=== PATIENT | female | born 1995 | race Caucasian/White ===

== ENCOUNTER 2025-02-16 08:55 | Outpatient (CLI) | payer OTHER, SELFPAY ==
--- NOTE | 2025-02-16 09:15 | CRLHL7_ITS ---
For Patients: As a result of the Century Cures Act, medical imaging exams and procedure reports are released immediately into your electronic medical record. You may view this report before your referring provider. If you have questions, please contact your health care provider. INDICATION: Dating and viability COMPARISON: None TECHNIQUE: Grayscale and color transvaginal ultrasound of the uterus and ovaries. FINDINGS: Last menstrual period: 12/20/2024 Estimated gestational age: 8 weeks 2 days The uterus is retroverted and retroflexed. There is a gestational sac at the uterine fundus that measures 20 x 24 x 39 millimeters for a mean sac diameter of 28 millimeters which corresponds to an estimated gestational age of 7 weeks and 6 days. There is a small normal yolk sac. An embryo is present with a crown-rump length of 16.8 millimeters which corresponds to an estimated gestational age of 8 weeks and 1 day. Embryonic cardiac activity is present at a rate of 178 beats per minute. There is a 2nd fluid filled presumed gestational sac that measures 13 x 19 x 24 millimeters for a mean sac diameter of 19 millimeters which corresponds to an estimated gestational age of 6 weeks and 6 days. No yolk sac or embryo. No perigestational hemorrhage. There is a very small myometrial fibroid that measures 0.5 cm. The right ovary measures 3.7 x 1.5 x 2.2 cm. The left ovary measures 3.2 x 2.1 x 2.1 cm. No ovarian cyst or mass. Normal color Doppler flow. No pelvic free fluid. IMPRESSION: There are 2 separate intrauterine gestational sacs, 1 with a normal yolk sac and a normal-appearing embryo with an estimated gestational age of 8 weeks 1 day based on crown-rump length. The other gestational sac does not have a yolk sac or embryo and is anembryonic. Dictated by Celina Forbes MD @ 02/16/2025 9:56:15 AM (Electronically Signed)
== END 2025-02-16 08:56 | disposition home or self-care (01) ==
LOC: US 08:56
PROVIDERS: Visit Provider Physician Assistant
DX: Z34.91 Encounter for supervision of normal pregnancy, unspecified, first trimester (principal); Z3A.08 8 weeks gestation of pregnancy
CPT/HCPCS: 76817; 83021; 86592; 86703; 86704; 86706; 86762; 86787; 86803; 86850; 86900; 86901; 87086; 87340; 87491; 87591

== ENCOUNTER 2025-05-14 12:50 | Outpatient (CLI) | payer OTHER, SELFPAY ==
--- NOTE | 2025-05-14 13:00 | CRLHL7_ITS ---
For Patients: As a result of the Century Cures Act, medical imaging exams and procedure reports are released immediately into your electronic medical record. You may view this report before your referring provider. If you have questions, please contact your health care provider. OBSTETRICAL ULTRASOUND ??? ANATOMY SURVEY INDICATION: anatomy survey. CLINICAL HISTORY: LMP: 12/20/2024 ROSELINE by LMP: 09/26/2025 Gestational age: 20 weeks 5 days TECHNIQUE: Real-time casillas-scale transabdominal imaging of the fetus was performed. PRIOR ULTRASOUND: 02/16/2025 FINDINGS: position: Vertex Cervix: Visualized Technique: Transabdominal Length of closed cervix: 4.4 cm Placenta position: Anterior, posterior, right wall. Technique: Transabdominal Placenta tip to internal os: 7.4 cm anterior, 9.6 cm posterior Umbilical cord: 3-vessel cord Placental insertion: Velamentous suggested Amniotic fluid: 3.9 cm SDP (greater than/equal to 2 to less than 8 cm) ANATOMY SURVEY: Observed Structures Cerebellum: Yes; 2.1 cm, 21 weeks 0 days Cisterna magna: Yes; 4.2 mm Nuchal fold: Yes; 5.3 mm Lateral ventricle: Yes; 8.5 mm CSP: Yes Midline falx: Yes Choroid plexus: Yes Spine: Yes Stomach: Yes Abdominal cord insert: Yes Urinary bladder: Yes Kidneys: Yes Diaphragm: Yes Nose/lips: Yes Orbital view: Yes Profile: Yes Upper extremities: Yes Lower extremities: Yes Hands: Yes Feet: Yes 4-chamber heart: Yes LVOT: Yes RVOT: Yes 3VV: Yes 3VTV: Unobserved BIOMETRY BPD: 5.0 cm, 21 weeks 0 days, 63.0% HC: 18.3 cm, 20 weeks 5 days, 38.2% AC: 15.9 cm, 21 weeks 0 days, 54.5% FL: 3.4 cm, 20 weeks 3 days, 33.7% FL/AC: 21.0% HC/AC ratio: 1.2 heart rate: 144 bpm age by this ultrasound: 20 weeks 5 days ROSELINE by this ultrasound: 09/26/2025 Estimated weight: 377.4 grams (0 pounds 13 ounces) Percentile by ROSELINE: 49.1% IMPRESSION: 1) There appear to be two placentas present, one at the posterior superior uterus and one at the anterior inferior uterus. Velamentous placental cord insertion is suggested. A level 2 maternal medicine consult is recommended for further evaluation. 2) Normal anatomic survey. 3) Concordance of clinical and sonographic dating. JARED ESCALANTE M.D. Diagnostic Radiologist [email or web address] Transcribed: 5:[address]/Dictated by: Jared Escalante MD @ 05/14/2025 2:52:00 PM (Electronically Signed)
== END 2025-05-14 12:51 | disposition home or self-care (01) ==
LOC: US 12:50
PROVIDERS: Visit Provider Obstetrics & Gynecology
DX: O43.192 Other malformation of placenta, second trimester (principal); Z3A.20 20 weeks gestation of pregnancy
CPT/HCPCS: 76805

== ENCOUNTER 2025-05-23 09:03 | Outpatient (CLI) | payer OTHER, SELFPAY | END 2025-05-23 09:04 | disposition home or self-care (01) | LOC: US 09:03 | PROVIDERS: Visit Provider Physician Assistant | DX: O43.192 Other malformation of placenta, second trimester (principal); Z3A.22 22 weeks gestation of pregnancy | CPT/HCPCS: 76811 ==

== ENCOUNTER 2025-05-29 06:17 | Emergency (ER) | payer OTHER, SELFPAY ==
[2025-05-29] VITALS (29 sets, daily range): BP systolic 108–128; BP diastolic 62–78; PULSE 70–95; RESP 20–23; TEMP 36.9; O2SAT 95–100; BMI 22.7
--- OUTSIDE RECORDS SUMMARY | 2025-05-29 06:20 | XMS_ITS ---
Author Organization [facility] [employer] [facility] (ClinicalSummary Clone) Address Unknown Care Team Providers Care Hide Mill Worker Name Role Phone Unavailable Primary Care Physician Unavailab le Results * [UNITY] CARRIER SCREEN Performed by: Clinc! Component Value Range Date Sickle Cell Disease/Beta-Thalassemia/Hemo globinopathies carrier screen NEGATIVE 03/31/2025 06:24 am [facility] Alpha-Thalassemia carrier screen NEGATIVE 03/31/2025 06:24 am [facility] Cystic Fibrosis carrier screen NEGATIVE 03/31/2025 06:24 am [facility] Spinal Muscular Atrophy carrier screen NEGATIVE 2 SMN1 copies, SNP not present 03/31/2025 06:24 am [facility] For detailed report, see PDF See PDF 03/31/2025 06:24 am [facility] 03/31/2025 06:2 4 am [facility] Social History Observation Value Start Date End Date
--- OUTSIDE RECORDS SUMMARY | 2025-05-29 06:20 | XMS_ITS ---
Author Organization [facility] [employer] [facility] (ClinicalSummary Clone) Address Unknown Care Team Providers Care Engineering Supplies Sales Name Role Phone Unavailable Primary Care Physician Unavailab le Results * [UNITY] ANEUPLOIDY NIPT Performed by: [place]. Component Value Range Date Fraction 11.7% 03/27/2025 02 :34 am [facility] Sex Chromosome Aneuploidy NOT DETECTED 02:34 am [facility] Monosomy X LOW RISK <1 in 10,000 2024 02:34 am [facility] Trisomy 13 LOW RISK <1 in 10,000 2024 02:34 am [facility] Trisomy 18 LOW RISK <1 in 10,000 2024 02:34 am [facility] Trisomy 21 LOW RISK <1 in 10,000 2024 02:34 am [facility] Sex MALE 03/27/2025 02:3 4 am [facility] Gestation JOHNSON 03/27/20 02:34 am [facility] For detailed report, see PDF See PDF 03/27/2025 02:34 am [facility] 03/27/2025 02:3 4 am [facility] Social History Observation Value Start Date End Date
--- OUTSIDE RECORDS SUMMARY | 2025-05-29 06:20 | XMS_ITS | Clinical Summary ---
Author Organization [facility] Address [address] [place] [id number] Care Team Providers Care Manager Loss Prevention Name Role Phone [facility] Primary Care Provider [phone] Allergies No known active allergies Medications fluticasone (50 mcg per actuation) nasal solution (FLONASE)Indicati ons:Allergic rhinitis due to pollen, unspecified seasonality Inhale 2 Sprays into both nostrils 2 times daily. 1 Bottle 1 9 Active Additional Information Patient not taking.Reported on 05/20/2025 cetirizine (ZYRTEC) 10 mg tablet Take 1 tablet by mouth once daily if needed for Other (Specify) (Allergy Symptoms). 0 9 Active norgestimate-ethi nyl estradioL (ORTHO TRI-CYCLEN) 0.18/0.215/0.25 mg-35 mcg (28) tabletIndications :Uses contraception TAKE 1 TABLET BY MOUTH EVERY DAY 84 tablet 0 Active Additional Information Patient not taking.Reported on 05/20/2025 FLUoxetine (PROZAC) 20 mg capsuleIndication s:Anxiety and depression TAKE 1 CAPSULE BY MOUTH EVERY DAY IN THE MORNING 90 capsule 0 Active vit/iron fum/folic ac ( 1 + 1 ORAL) Take by mouth once daily. Active Active Problems Problem Noted Date Diagnosed Date Anxiety and depression 11/26/2016 Estimated Date of Delivery Comme nts Yes 09/26/2025 Encounters Date Type Department Care Team Description 05/20/2025 11:14 AM FACTORY WORKER - 05/20/2025 2:55 PM FACTORY WORKER Emergency [facility] [address] [place] [address] Venessa Gerard MD Hematuria, unspecified type (Primary Dx); Calculus of kidney affecting in second trimester (HC) Discharge Disposition: Home Self Care 05/20/2025 10:09 AM FACTORY WORKER - 05/20/2025 10:32 AM FACTORY WORKER Hospital Encounter [facility] [address] [place] [address] Emmett Shipman MD Discharge Disposition: Home Self Care 05/20/2025 - 05/20/2025 10:06 AM FACTORY WORKER Emergency [facility] [address] [place] [address] 05/20/2025 Travel from Last 3 Months Immunizations Immunization Administration Dates Next Due DTaP 12/13/2000, 6,1995,1995, Hepatitis A (Peds) 12/11/2013,12/25/2009 Hepatitis B (Peds) 1995,1995, 995 Human Papilloma Virus Vaccine 02/15/2014, 010,12/25/2009 Inactivated Polio Vaccine 12/13/2000,1995, 1995,1995 Influenza,CCIIV4 PRESERV FREE 04/12/2018 MMR 12/13/2000,05/17/1996 Meningococcal Vaccine 02/15/2014,12/11/2013 Td (Age >=7 Years) 01/13/2007 Tdap 12/11/2013 Tuberculin (PPD) 02/06/2019 Typhoid (injectable) 12/11/2013 Varicella Vaccine 01/13/2007,05/17/1996 Zoster (Zostavax-ZVL, live) 12/14/2006 Social History Tobacco Use Types Packs/Day Years Used Date Smoking Tobacco: Never Passive Smoke Exposure: Never Smokeless Tobacco: Never Tobacco Cessation:Counseling Given: Not Answered Alcohol Use Standard Drinks/Week Comments Yes 0 (1 standard drink = 0.6 oz pur e alcohol) occasional PHQ-2 Answer Date Recorded PHQ-2 Score 0 09/06/2018 Alcohol Use Answer Date Recorded How often do you have a drink containing alcohol ? 0 05/20/2025 Average Number of Drinks Not on file 025 Frequency of Binge Drinking Not on file 05/05 Estimated Date of Delivery Comme nts Yes 09/26/2025 Sex and Gender Information Value Date Recorded Sex Assigned at Not on file Legal Sex Female 1:12 PM FACTORY WORKER Gender Identity Not on file Sexual Orientation Not on file Obstetrics History Para Term AB IAB SAB Ectopic Multiple Livin g Live Births 2 Date Outcome GA Total Labor Labor/2nd/3rd Weight Sex Type Anes PTL Elda A1 A5 Name Clin Current Summary Episode Dates Number of Fetuses Estimated Date of Delivery 05/20/2025 - Present (05/29/2025) 09/26/2025 (based on Alternate ROSELINE Entry) Dating Summary Based On ROSELINE GA Diff Alternate ROSELINE Entry 09/26/2025 Working Comment:Date entered prior t o episode creation Vitals Pregravid Weight Height TWG (As of 05/29/2025) Pregrav id BMI 1.676 m (5' 6) Date GA Fund Present FHR Mvmt BP Weight Edema Alb Glu Ket Dil/ Eff/Sta 5 21w4d Inpatient data not displayed here. See encounter summary. 21w4d Inpatient data not displayed here. See encounter summary. Notes Progress Notes - Hospital En counter - 05/20/2025 - GA:21w4d 05/20/2025 - 21w4d - Juanita David, RN 21w4d Pt arrived on unit at 1009 from urgent care with concerns for kidney stones. Pt reprots kidney stones in her last and is now noticing blood in her urine and pain with urination. Pt denies flank pain but has some lower abdominal pain. Pt denies contractions, leaking of fluid, and reports good movement. UA and culture were already obtained in urgent care. Pt is vitally stable and dop tones were reassuring 140-150's with increases. Dr. Shepherd was contacted at 1021 and he ordered pt to be transfered back to the ED for further work up of potential kidney stones. Pt agreeable to plan and pt brought back to ED waiting from per ED charge nurse request at [phone]. ORY WORKER Last Filed Vital Signs Vital Sign Reading Time Taken Comments Blood Pressure 115/70 05/20/2025 10:52 AM FACTORY WORKER Pulse 92 05/20/2025 10:52 AM FACTORY WORKER Temperature 36.7 C (98.1 F) 05/20/2025 10:52 AM FACTORY WORKER Respiratory Rate 16 05/20/2025 10:52 AM FACTORY WORKER Oxygen Saturation 99% 05/20/2025 10:52 AM FACTORY WORKER Inhaled Oxygen Concentration - - Weight 64.9 kg (143 lb) 05/20/2025 10:52 AM FACTORY WORKER Height 167.6 cm (5' 6) 05/20/2025 10:52 AM FACTORY WORKER Body Mass Index 23.08 05/20/2025 10:52 AM FACTORY WORKER Plan of Treatment Health Maintenance Due Date Last Done Comments HIV for age 15-65 2010 Hepatitis C screening for age 18-79 2013 Pap test for age 21-65 12/03/2018 6 (Completed outside of [facility]) BMI (ht and wt on same day) for age 18+ 12/13/2019 12/12/2018, 01/06/2018, 01/19/2017, Additional history exists Depression screening for age 12+ 12/13/2019 12/12/2018, 01/06/2018, 01/19/2017, Additional history exists Tetanus booster 12/12/2023 12/11/2013, 01/13/2007 Influenza Vaccine (#1) 2025 04/12/2018 RSV vaccine for adults or (1 - Risk 1-dose series) 08/01/2025 Hepatitis B series for 19+ Completed 11/09, 1995, 1995 HPV series for age 9-45 Completed 02/16/20 14, 02/24/2010, 12/25/2009 Pneumococcal series for age 6-49 Aged Out No longer eligible based on patient's age to complete this topic Procedures Procedure Name Priority Date/Time Associated Diagnosis Comments US RENAL AND BLADDER COMPLETE STAT 05/20/2025 2:30 PM FACTORY WORKER CBC WITH AUTO DIFFERENTIAL STAT 05/20/2025 11:37 AM FACTORY WORKER COMP METABOLIC PANEL STAT 05/20/2025 11:37 AM FACTORY WORKER CBC WITH AUTO DIFFERENTIAL STAT 05/20/2025 11:37 AM FACTORY WORKER URINALYSIS MICROSCOPIC STAT 05/20/2025 9:40 AM FACTORY WORKER Frequency of urination URINE CULTURE STAT 05/20/2025 9:40 AM FACTORY WORKER Frequency of urination UA W/ SEDIMENT EXAM REFLEXED PER CRITERIA STAT 05/20/2025 9:40 AM FACTORY WORKER Frequency of urination from Last 3 Months Results * US RENAL AND BLADDER COMPLETE (05/20/2025 2:30 PM FACTORY WORKER) Anatomical Region Laterality Modality Abdomen, AORTA, KIDNEYS Ultrasou nd 05/20/2025 2:48 PM FACTORY WORKER Impressions 05/20/2025 2:48 PM FACTORY WORKER Possible mild right hydronephrosis versus physiologic prominence of the renal collecting system in The bladder and left kidney are unremarkable Dictated by Abby Coelho MD @ 05/20/2025 2:48:28 PM (Electronically Signed) Narrative 05/20/2025 2:48 PM FACTORY WORKER For Patients: As a result of the Cures Act, medical imaging exams and procedure reports are released immediately into your electronic medical record. You may view this report before your referring provider. If you have questions, please contact your health care provider. INDICATION: Hematuria, TECHNIQUE: Ultrasound renal and bladder complete. Jack-scale and color Doppler sonographic images were acquired of the kidneys and urinary bladder. COMPARISON: None. FINDINGS: Right kidney: 11.2 x 6.2 x 4.8 cm. Normal echotexture and cortex. No suspicious masses or stones. Prominence of the right renal hilum that persists after voiding, indeterminate for trace hydronephrosis versus physiologic state of . Left kidney: 12 x 7 x 6.9 cm. Normal echotexture and cortex. No suspicious masses, stones, or hydronephrosis. Bladder: Normal in caliber and appearance. Postvoid residual volume of 2.9 mL. Color Doppler images demonstrate bilateral ureteral jets. Procedure Note Abby Coelho MD - 05/20/2025 For Patients: As a result of the Cures Act, medical imagingexams and procedure reports are released immediately into your electronicmedical record. You may view this report before your referring provider.If you have questions, please contact your health care provider. INDICATION: Hematuria, TECHNIQUE: Ultrasound renal and bladder complete. Jack-scale and color Dopplersonographic images were acquired of the kidneys and urinary bladder. COMPARISON: None. FINDINGS: Right kidney: 11.2 x 6.2 x 4.8 cm. Normal echotexture and cortex. Nosuspicious masses or stones. Prominence of the right renal hilum thatpersists after voiding, indeterminate for trace hydronephrosis versusphysiologic state of . Left kidney: 12 x 7 x 6.9 cm. Normal echotexture and cortex. Nosuspicious masses, stones, or hydronephrosis. Bladder: Normal in caliber and appearance. Postvoid residual volume of 2.9mL. Color Doppler images demonstrate bilateral ureteral jets. IMPRESSION: Possible mild right hydronephrosis versus physiologic prominence of therenal collecting system in The bladder and left kidney are unremarkable Dictated by Abby Coelho MD @ 05/20/2025 2:48:28 PM (Electronically Signed) Venessa Gerard MD Final Result * (ABNORMAL) CBC WITH AUTO DIFFERENTIAL (05/20/2025 11:37 AM FACTORY WORKER) WHITE BLOOD COUNT 8.5 4.5 - 11.0 thou/cu mm 05/20/2025 11:44 AM FACTORY WORKER [facility] RED BLOOD COUNT 3.73(L) 4.00 - 5.20 mil/cu mm 05/20/2025 11:44 AM FACTORY WORKER [facility] HEMOGLOBIN 11.7(L) 12.0 - 16.0 g/dL 05/20/2025 11:44 AM [facility] HEMATOCRIT 34.5 33.0 - 51.0 % 05/20/2025 11:44 AM [facility] MCV 93 80 - 100 fL 05/20/2025 11:44 AM [facility] MCH 31.4 26.0 - 34.0 pg 05/20/2025 11:44 AM [facility] MCHC 33.9 32.0 - 36.0 g/dL 05/20/2025 11:44 AM [facility] RDW 12.8 11.5 - 15.5 % 05/20/2025 11:44 AM [facility] PLATELET COUNT 156 140 - 440 thou/cu mm 05/20/2025 11:44 AM [facility] MPV 10.8 6.5 - 11.0 fL 05/20/2025 11:44 AM [facility] % NEUT 74.2 % 05/20/2025 11:44 AM [facility] % LYMPH 19.1 % 05/20/2025 11:44 AM [facility] % MONO 5.6 % 05/20/2025 11:44 AM [facility] % EOS 0.9 % 05/20/2025 11:44 AM [facility] % BASO 0.2 % 05/20/2025 11:44 AM [facility] ABSOLUTE NEUTROPHILS 6.3 1.7 - 7.0 thou/cu mm 05/20/2025 11:44 AM [facility] ABSOLUTE LYMPHOCYTES 1.6 0.9 - 2.9 thou/cu mm 05/20/2025 11:44 AM [facility] ABSOLUTE MONOCYTES 0.5 <0.9 thou/cu mm 05/20/2025 11:44 AM [facility] ABSOLUTE EOSINOPHILS 0.1 <0.5 thou/cu mm 05/20/2025 11:44 AM [facility] ABSOLUTE BASOPHILS 0.0 <0.3 thou/cu mm 05/20/2025 11:44 AM [facility] Blood BLOOD SPECIMEN / Unknown Venipuncture / Unknown 05/20/2025 11:37 AM [facility] 05/20/2025 11:40 AM FACTORY WORKER us Venessa Gerard MD HEMATOLOGY Final Result [facility] [address] [place] [address] * (ABNORMAL) COMP METABOLIC PANEL (05/20/2025 11:37 AM FACTORY WORKER) SODIUM 136 136 - 145 mmol/L 05/20/2025 12:02 PM [facility] POTASSIUM 4.1 3.5 - 5.1 mmol/L 05/20/2025 12:02 PM [facility] CHLORIDE 104 98 - 107 mmol/L 05/20/2025 12:02 PM [facility] CO2,TOTAL 22 22 - 29 mmol/L 05/20/2025 12:02 PM [facility] ANION GAP 10 5 - 18 05/20/2025 12:02 PM [facility] GLUCOSE 80 70 - 99 mg/dL 05/20/2025 12:02 PM [facility] CALCIUM 8.5(L) 8.8 - 10.4 mg/dL 05/20/2025 12:02 PM [facility] Comment: Reference ranges for this test were updated on 05/09/2024 to reflect our healthy population more accurately. Reference range changes are not retroactively applied to results, but previous results using the same methodology can be interpreted in the context of the new reference range. BUN 11 6 - 20 mg/dL 05/20/2025 12:02 PM [facility] CREATININE 0.55 0.50 - 0.90 mg/dL 05/20/2025 12:02 PM [facility] BUN/CREAT RATIO 20 10 - 20 12:02 PM [facility] eGFR >90 >90 mL/min/1. 73m2 05/20/2025 12:02 PM [facility] Comment:As of 2021, eG FR is calculated by the CKD-EPI creatinine equation without race adjustment. eGFR can be influenced by muscle mass, exercise, and diet. The reported eGFR is an estimation only and is only applicable if the renal function is stable. ALBUMIN 3.7(L) 4.0 - 4.9 g/dL 05/20/2025 12:02 PM [facility] PROTEIN,TOTAL 6.0 6.0 - 8.0 g/dL 05/20/2025 12:02 PM [facility] BILIRUBIN,TOTAL 1.1 0.0 - 1.2 mg/dL 05/20/2025 12:02 PM [facility] ALK PHOSPHATASE 36 35 - 104 IU/L 05/20/2025 12:02 PM [facility] ALT (SGPT) 9(L) 10 - 35 IU/L 05/20/2025 12:02 PM [facility] AST (SGOT) 15 10 - 35 IU/L 05/20/2025 12:02 PM [facility] Blood BLOOD SPECIMEN / Unknown Venipuncture / Unknown 05/20/2025 11:37 AM FACTORY WORKER 05/20/2025 11:40 AM [facility] us Venessa Gerard MD CHEMISTRY Final Result [facility] [address] [place] [id number] * (ABNORMAL) URINALYSIS MICROSCOPIC (05/20/2025 9:40 AM FACTORY WORKER) RBC >100(A) 0-2, None Seen /HPF 05/20/2025 10:23 AM [facility] WBC 0-2 0-2, 3-5, None Seen /HPF 05/20/2025 10:23 AM [facility] BACTERIA Many(A) None Seen, Rare, Few Bacteria/ HPF 05/20/2025 10:23 AM [facility] EPITHELIAL CELLS Few None Seen, Few Epi/HPF 05/20/2025 10:23 AM [facility] AMORPHOUS Present(A) (none) 05/20/2025 10:23 AM [facility] Urine URINE SPECIMEN / Unknown Non-Blood / Unknown 05/20/2025 9:40 AM FACTORY WORKER 05/20/2025 9:58 AM FACTORY WORKER us Jimmie Alberto Le PA URINE Final Result [facility] [address] [place] [address] * URINE CULTURE (05/20/2025 9:40 AM FACTORY WORKER) CULTURE 10-50,000 CFU/mL of multiple organisms, probable contaminants 05/22/2025 8:13 AM FACTORY WORKER [facility] Urine URINE SPECIMEN / Unknown Non-Blood / Unknown 05/20/2025 9:40 AM FACTORY WORKER 05/20/2025 9:58 AM FACTORY WORKER us Jimmie Alberto Le KELLI MICROBIOLOGY Final Result Performing Organization Address City/[facility]/ZIP Co de Phone Number [facility] [address] [address], [place] * (ABNORMAL) UA W/ SEDIMENT EXAM REFLEXED PER CRITERIA (05/20/2025 9:40 AM FACTORY WORKER) COLOR Yellow Yellow Color 05/20/2025 10:14 AM [facility] CLARITY Cloudy(A) Clear Clarity 05/20/2025 10:14 AM [facility] SPECIFIC GRAVITY,URINE 1.020 1.010, 1.015, 1.020, 1.025 05/20/2025 10:14 AM [facility] PH,URINE 7.5 6.0, 7.0, 8.0, 5.5, 6.5, 7.5, 8.5 05/20/2025 10:14 AM [facility] UROBILINOGEN, QUALITATIVE Normal Normal EU/dl 05/20/2025 10:14 AM [facility] PROTEIN, URINE Trace(A) Negative mg/dL 05/20/2025 10:14 AM [facility] GLUCOSE, URINE Negative Negative mg/dL 05/20/2025 10:14 AM [facility] KETONES,URINE Negative Negative mg/dL 05/20/2025 10:14 AM FACTORY WORKER [facility] BILIRUBIN,URI NE Negative Negative 05/20/2025 10:14 AM [facility] OCCULT BLOOD,URINE Large(A) Negative 05/20/2025 10:14 AM [facility] NITRITE Negative Negative 05/20/2025 10:14 AM FACTORY WORKER [facility] LEUKOCYTE ESTERASE Negative Negative 05/20/2025 10:14 AM [facility] Urine URINE SPECIMEN / Unknown Non-Blood / Unknown 05/20/2025 9:40 AM FACTORY WORKER 05/20/2025 9:58 AM FACTORY WORKER us Jimmie Remy Hughes URINE Final Result [facility] [address] [place] [address] from Last 3 Months Insurance [facility] Care Teams Manager Loss Prevention Relationship Specialty Start Date End Date [facility] [address] [place], [place] [id number] PCP - General 05/20/25
--- NOTE | 2025-05-29 06:56 | ED_ITS ---
HPI - General Adult General Date Seen: 05/29/25 Chief complaint: Flank Pain Stated complaint: RT flank pain wrap Time Seen by Provider: 05/29/25 06:56 History of Present Illness HPI narrative: 30-year-old female who is currently 23 weeks . She is following with Tere Greenfield for care. Most recent visit was 05/14/2025. According to those records she did have 2 gestational sacs noted on ultrasound in February but apparently had vanishing twin on follow-up imaging. She was seen in the [facility] on 05/20/2020 5-9 days ago. She had presented with hematuria and suprapubic discomfort. Laboratory workup showed a white count of 8.5, hemoglobin 11.7, platelet count 156. BUN was 11, creatinine 0.55, glucose 80. Normal LFTs. Urinalysis showed hematuria (>100RBC)but no definite infection. Follow-up urine culture grew multiple species, likely contaminant. Because of hematuria, renal ultrasounds obtained on and showed IMPRESSION: Possible mild right hydronephrosis versus physiologic prominence of the renal c ollecting system in ? The bladder and left kidney are unremarkable She says she had been doing well after being seen in the [facility] ER 9 days ago. She had some mild right lower quadrant pain a few days ago that came and went. Last night at about 10:00 p.m. she started having pain in her right flank, radiating down into her right lower quadrant, reminiscent of her kidney stone again and blood in her urine again. She was also nauseous and vomited once. No fever or chills. She is not having any vaginal bleeding or fluid leakage. She took Tylenol at 10:00 p.m. and 2:00 a.m. without any improvement Related Data Home Medications ?Medication ?Instructions ?Recorded ?Confirmed [id number] 3 fatty no.1 27 cap PO DAILY 5 05/14/25 mg-1 mg-300 mg capsule Previous Rx's ?Medication ?Instructions ?Recorded fluoxetine 20 mg capsule 20 mg PO QDAY #30 caps 04/13 Allergies Allergy/AdvReac Type Severity Reaction Status Date / Time No Known Drug Allergies Allergy Verified 05/29/25 06:32 PFSH [facility] Surgical History (Updated 02/16/25 @ 13:08 by Tere Stuart PA-C) History of facial surgery ?Z98.890 - Other specified postprocedural states (ICD-10) Social History (Updated 02/16/25 @ 13:09 by Tere Stuart PA-C) Narrative: Occupation: Occupational therapist. Marital status: . Congregational/cultural needs: no. Chemical or radiation exposure: no. Pre- tobacco use: no. Pre- alcohol use: no. Current tobacco use: no. Current alcohol use: no. Recreational drug use: no. Dietary restrictions: no. Blood transfusion acceptable in an emergency: yes. PSYCHOSOCIAL HISTORY: History of depression or currently depressed: Yes, doing well on fluoxetine. Current or past physical, emotional, or sexual mistreatment: Denies. Problems that will make it hard to make it to appointments: Denies. What is your current living situation?: I presently have a place to live Problems where you live: no known problems In the past 12 months, utilities in danger of being shut off: no In past 12 months, lack of transportation kept you from medical appts, meetings, work, or getting things needed for daily living: no In the past 12 mos, have been you worried that your food would run out before you had money to buy more?: never true In the past 12 mos, the food you bought just didn't last and you didn't have money to buy more?: never true How often does anyone, including family, friends and others, physically hurt you : never How often does anyone, including family, friends and others, insult or talk down to you: never How often does anyone, including family, friends and others, threaten you with harm: never How often does anyone, including family, friends and others, scream or curse at you: never Exam Narrative: Exam Narrative: Constitutional: Appears well-developed and well-nourished. Alert. Uncomfortable appearing, but Conversant. Overall, she is Non toxic. attentively at her side. HENT: Head: Atraumatic. Nose: Nose normal. Mouth/Throat: Oral mucosa is clear and moist. no trismus. Pharynx normal. Tonsils symmetric. No tonsillar enlargement, erythema, or exudate. Eyes: Conjunctivae normal. EOM normal. Pupils equal, round, and reactive to light. No scleral icterus. Neck: Normal range of motion. Neck supple. No tracheal deviation present. Cardiovascular: Normal rate, regular rhythm. No gallop. No friction rub. No murmur heard. Symmetric radial artery pulses Pulmonary/Chest: Effort normal. No stridor. No respiratory distress. No wheezes. No rales. No rhonchi . No tenderness. Abdominal: Soft. Bowel sounds normal. No distension. Mild right CVA and right lower quadrant tenderness. No rebound. No guarding. Gravid nontender uterus with fundus superior to the umbilicus consistent with dates. Musculoskeletal: RUE: Normal range of motion. No tenderness. No deformity LUE: Normal range of motion. No tenderness. No deformity RLE: Normal range of motion. No edema. No tenderness. No deformity LLE: Normal range of motion. No edema. No tenderness. No deformity Neurological: Alert and oriented to person, place, and time. Normal strength. CN II-VII intact. No sensory deficit. GCS eye subscore is 4. GCS verbal subscore is 5. GCS motor subscore is 6. Normal coordination Skin: Skin is warm and dry. No rash noted. No pallor. Normal capillary refill. Psychiatric: Normal mood. She looks very uncomfortable. Const: Vital Signs, click to edit/add: Vital Signs - 24 hr 05/29/25 06:21 Temperature 98.4 F Pulse Rate [Right Pulse Oximeter] 95 Respiratory Rate 23 Blood Pressure [Ri ght Upper Arm] 124/71 Pulse Oximetry 96 Oxygen Delivery Me thod Room Air Course Vital Signs Vital signs: Initial Vital Signs Temperature 98.4 F 05/29/25 06:21 Temperature Source Temporal Artery Scan 05/29/25 06:21 Pulse Rate 95 05/29/25 06:21 Pulse Rhythm Regular 05/29/25 06:21 Respiratory Rate 23 05/29/25 06:21 Blood Pressure 124/71 05/29/25 06:21 Blood Pressure Mean 88 05/29/25 06:21 Blood Pressure Position Sitting 05/29/25 06:21 Pulse Oximetry 96 05/29/25 06:21 Oxygen Delivery Method Room Air 05/29/25 06:21 Vital Signs Temperature 98.4 F 05/29/25 06:21 Pulse Rate 95 05/29/25 06:21 Respiratory Rate 23 05/29/25 06:21 Blood Pressure 124/71 05/29/25 06:21 Pulse Oximetry 96 05/29/25 06:21 Oxygen Delivery Method Room Air 05/29/25 06:21 Temperature 98.4 F 05/29/25 06:21 Pulse Rate 95 05/29/25 06:21 Respiratory Rate 23 05/29/25 06:21 Blood Pressure 124/71 05/29/25 06:21 Pulse Oximetry 96 05/29/25 06:21 Oxygen Delivery Method Room Air 05/29/25 06:21 Medications Administered Medications: Generic Name Dose Route Start Last Admin Trade Name Freq PRN Reason Stop Dose Admin Hydromorphone HCl 0.5 mg 05/29/25 07:04 05/29/25 07:33 Hydromorphone 0.5 Mg/0.5 Ml Inj IVP 0.5 mg Q1H PRN Administration Pain Discontinued Medications Generic Name Dose Route Start Last Admin Trade Name Freq PRN Reason Stop Dose Admin Sodium Chloride 1,000 mls @ 1,000 mls/hr 05/29/25 07:15 05/29/25 07:29 0.9 % Sodium Chloride 1000 Ml IV 05/29/25 08:14 1,000 mls/hr .Q1H ROBERT Administration Ondansetron HCl 4 mg 05/29/25 07:04 05/29/25 07:33 Ondansetron 2 Mg/Ml Inj IVP 05/29/25 07:05 4 mg ONCE ONE Administration Medical Decision Making MDM Narrative Medical decision making narrative: Pleasant 30-year-old female who is , currently 23 weeks [facility] severe right flank pain, nausea and vomiting. She has a history of kidney stones complicating her 1st and is suspected to have a kidney stone beginning 9 days ago on 05/20. She already has had ultrasound done at [facility] that confirm right-sided hydronephrosis. She has not had CT imaging to confirm the location and size of this stone, however. Given presentation weighing all is suspicious for kidney stone, I do not think we need to do repeat ultrasound double-checked for hydronephrosis. For now will hold off on CT imaging give will restore radiation to the patient and her fetus, pending consultation with Urology. She had been pretty comfortable at home for the past 8 days but overnight had a dramatic return in pain and nausea. She is not having any fever. She is quite uncomfortable but is hemodynamically stable. Workup here in the ER this morning shows normal white count but she does have a neutrophil predominance. She also has a drop in her platelet count compared to February from 200 down to 150. Normal kidney function. Normal LFTs. Urinalysis confirms hematuria but also shows new pyuria today that was not present on 05/20. There is also moderate bacteria. Negative nitrite. With concern for possible evolving urinary infection in the setting of a stone we started the patient on Rocephin. She did have a bedside evaluation by the labor and delivery nurses. So far no clear signs or symptoms of labor, miscarriage. She has received 2 doses of Dilaudid here in the ER but remains uncomfortable. It is clear she will need admission for pain control. Discussed with our on- call early childhood associate, Dr. Ann. She agrees with admission for pain control but recommends transfer out of [place] to another hospital with Urology since she likely will need a stent in this clinical scenario. I discussed this recommendation with the patient and her and they give agreement. They would agree with transfer to [facility] (she believes line is in network since she was at the [facility] (and [facility] facility) 9 days ago). We have placed transfer request through the line access center. Discussed with my partner, Dr. Nash at 8:30 a.m.. He will follow up with the receiving facility to arrange transfer. Lab Data Labs: Lab Results 05/29/25 05/29/25 Range/Units 07:15 07:35 WBC 9.53 (4.50-11.00) K/uL RBC 3.93 L (4.00-5.20) m/uL Hgb 12.5 (12.0-16.0) gm/dL Hct 36.8 (33.0-51.0) % MCV 94 (80-100) fL MCH 32 (26-34) pg MCHC 34 (32-36) gm/dL RDW Coeff of Oneil 12.6 (11.5-15.5) % Plt Count 149 (140-440) K/uL Neut % (Auto) 92.4 H (42.0-72.0) % Lymph % (Auto) 6.3 L (20-44) % [place] % (Auto) 0.9 (0.0-11.0) % Eos % (Auto) 0.0 (0.0-7.0) % Baso % (Auto) 0.1 (0.0-3.0) % Neut # (Auto) 8.80 H (1.7-7.0) K/uL Lymph # (Auto) 0.60 L (0.90-2.90) K/uL [place] # (Auto) 0.10 (0.00-0.90) K/UL Eos # (Auto) 0.00 (0.00-0.50) K/uL Baso # (Auto) 0.01 (0.00-0.30) K/uL Abs Immat Gran (auto) 0.03 (0.00-0.30) K/uL Imm/Tot Granulo (auto) 0.3 % Sodium 134 L (135-149) mmol/L Potassium 4.2 (3.6-5.1) mmol/L Chloride 101 (96-114) mmol/L Carbon Dioxide 22 (20-32) mmol/L Anion Gap 11 (7-15) mEq/L BUN 11 (5-24) mg/dL Creatinine 0.6 (0.5-1.5) mg/dL Estimated Creat Clear 133.32 Estimated GFR 124 ml/min Glucose 134 H (60-115) mg/dL Calcium 8.5 (8.4-10.6) mg/dL Total Bilirubin 1.1 (0.1-1.5) mg/dL AST 18 (12-35) U/L ALT 14 (4-35) U/L Alkaline Phosphatase 49 (40-150) U/L Total Protein 6.7 (6.0-8.3) g/dL Albumin 3.8 (3.3-5.0) g/dL Lipase 36 (23-300) U/L Urine Color [place] A (Yellow) Urine Appearance Cloudy A (Clear) Urine pH 7.5 (5.0-8.5) Ur Specific [place] 1.020 (1.000-1.030) Urine Protein 2+ A (Negative) Urine Glucose (UA) Negative (Negative) Urine Ketones 1+ A (Negative) Urine Blood 3+ A (Negative) Urine Nitrite Negative (Negative) Urine Bilirubin Negative (Negative) Urine Urobilinogen 0.2 (0.2-1.0) Ur Leukocyte Esterase Negative (Negative) Urine RBC >100 A (0-2) Urine WBC 25-50 A (0-5) Ur Squamous Epith Cells Few (None-Few) Amorphous Sediment Many A (None) Urine Bacteria Moderate A (None) Discharge Plan Discharge Prescriptions: No Action [id number] 3 fatty no.1 27-1-300 mg capsule PO DAILY fluoxetine 20 mg capsule 20 mg PO QDAY Qty: 30 12RF Follow Up/Referrals: Provider,Not a Local [Primary Care Provider, Family Practice]
[2025-05-29 07:19] LABS: Appearance Urine Cloudy (Clear)
[2025-05-29] MEDS: ONDANSETRON 2 MG/ML inj 4 MG IVP (07:33)
[2025-05-29 07:38] LABS: Hematocrit* 36.8 % (33.0-51.0); Hemoglobin* 12.5 gm/dL (12.0-16.0); Immature Granulocytes Abs Auto 0.03 K/uL (0.00-0.30); Immature Granulocytes Pct Auto 0.3 %; Lymphocytes Absolute Auto 0.60 K/uL (0.90-2.90); Mean Corpuscular HGB Conc 34 gm/dL (32-36); Mean Corpuscular Hemoglobin 32 pg (26-34); Mean Corpuscular Volume 94 fL (80-100); RDW Coefficient of Variation % 12.6 % (11.5-15.5); Red Blood Count* 3.93 m/uL (4.00-5.20); White Blood Count* 9.53 K/uL (4.50-11.00)
[2025-05-29 08:05] LABS: Slide Review Reflex No
[2025-05-29 08:06] LABS: Albumin* 3.8 g/dL (3.3-5.0); Chloride* 101 mmol/L (96-114)
[2025-05-29 08:07] LABS: Potassium* 4.2 mmol/L (3.6-5.1); Sodium* 134 mmol/L (135-149)
[2025-05-29 08:09] LABS: Alanine Aminotransferase* 14 U/L (4-35); Alkaline Phosphatase* 49 U/L (40-150); Anion Gap 11 mEq/L (7-15); Aspartate Amino Transferase* 18 U/L (12-35); Bilirubin Total* 1.1 mg/dL (0.1-1.5); Blood Urea Nitrogen* 11 mg/dL (5-24); Carbon Dioxide* 22 mmol/L (20-32); Creatinine* 0.6 mg/dL (0.5-1.5); Est. Creatinine Clearance* 133.32; Estimated Glomerular Filt Rate 124 ml/min; Total Protein* 6.7 g/dL (6.0-8.3)
[2025-05-29 08:10] LABS: Calcium* 8.5 mg/dL (8.4-10.6); Glucose* 134 mg/dL (60-115)
[2025-05-29] MEDS: cefTRIAXone 1 GM in 0.9 % SODIUM CHLORIDE Mini-bag 100 ML IVPB (08:43)
--- NOTE | 2025-05-29 15:27 | ED.NURSE ---
Report given to EMS. Called [facility] and they are aware patient is on their way.
== END 2025-05-29 15:43 | disposition short-term general hospital (02) ==
PROVIDERS: Emergency Provider Emergency Medicine
DX: R10.31 Right lower quadrant pain (principal); R31.9 Hematuria, unspecified; R82.81 Pyuria; Z3A.23 23 weeks gestation of pregnancy
CPT/HCPCS: 36415; 80053; 81001; 82570; 83690; 84156; 85025; 87086; 96365; 96375; 96376; 99284; 99285; J0696; J1171; J2405; J7030

== ENCOUNTER 2025-05-29 15:17 | Outpatient (CLI) | payer OTHER, SELFPAY | END 2025-05-29 15:18 | disposition home or self-care (01) | LOC: AMB 06-05 17:53 | PROVIDERS: Visit Provider Student in an Organized Health Care Education/Training Program | DX: O26.832 Pregnancy related renal disease, second trimester (principal); N20.0 Calculus of kidney; Z3A.23 23 weeks gestation of pregnancy | CPT/HCPCS: A0425; A0427 ==